=== PATIENT | female | born 1980 | race Caucasian/White ===

== ENCOUNTER 2020-07-31 13:43 | Outpatient (CLI) | payer BC, SELFPAY ==
[2020-07-31 15:00] LABS: Beta HCG Quantitative < 2.39 mIU/ML
== END 2020-07-31 13:44 | disposition home or self-care (01) ==
PROVIDERS: PCP Obstetrics & Gynecology; Visit Provider Obstetrics & Gynecology
DX: Z31.41 Encounter for fertility testing (principal)
CPT/HCPCS: 36415; 84702

== ENCOUNTER 2020-08-03 11:32 | Outpatient (CLI) | payer BC, SELFPAY ==
--- NOTE | ~2020-08-03 | XR_ITS ---
EXAMINATION: XR hysterosalpingogram EXAM DATE: 08/03/2020 12:29 INDICATION: History of ectopic . TECHNIQUE: Hysterosalpingogram was performed by Dr. Chuck Casiano MD with fluoroscopic guidance. I was present to obtain fluoroscopic images. The DAP for this procedure was 4.9 Gycm2. FINDINGS: [facility] radiograph demonstrates an unremarkable pelvis. Fluoroscopic images demonstrates nor mal appearing endometrial cavity which has been cannulated. Upon injection of contrast, both fallopi an tubes opacify and are normal in appearance. There is free spillage bilaterally. Uterus is withou t evidence of synechia. IMPRESSION: Patent fallopian tubes. Reviewed, dictated and finalized at location A. RWRITING MANAGER IMPRESSION: Patent fallopian tubes.
== END 2020-08-03 11:33 | disposition home or self-care (01) ==
PROVIDERS: PCP Obstetrics & Gynecology; Visit Provider Obstetrics & Gynecology
DX: O00.90 Unspecified ectopic pregnancy without intrauterine pregnancy (principal); Z3A.00 Weeks of gestation of pregnancy not specified
CPT/HCPCS: 58340; 74740; Q9966